=== PATIENT | female | born 1985 | race Caucasian/White ===

== ENCOUNTER 2021-12-04 23:12 | Emergency (ER) | payer SELFPAY | END 2021-12-05 01:34 | disposition home or self-care (01) | LOC: FER 23:12 | DX: S91.311A Laceration without foreign body, right foot, initial encounter (principal); Z23 Encounter for immunization; W25.XXXA Contact with sharp glass, initial encounter; Y92.009 Unspecified place in unspecified non-institutional (private) residence as the place of occurrence of the external cause | CPT/HCPCS: 73630; 90471; 90715 ==